=== PATIENT | female | born 2005 | race Caucasian/White ===

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

== ENCOUNTER 2023-02-26 17:34 | Emergency (ER) | payer BC, OTHER ==
[~2023-02-26] VITALS: Ht 170.2 cm; Wt 53.0 kg
--- OUTSIDE RECORDS SUMMARY | ~2023-02-26 | XMS | Continuity of Care Document ---
Demographics + + + | Address | [address] | | | [place] [address] | + + + | Preferred Language | Unknown | + + + | Marital Status | Never | + + + | Gnosticist Affiliation | Unknown | + + + | Race | White | + + + | Ethnic Group | Not or | + + + Author + + + | Author | [facility] | + + + | Organization | [facility] | + + + | Address | [address] | | | [place] [address] | + + + | Phone | | + + + Care Team Providers + + + + | Care [employer] [address] Forms Name | Role | Phone | + + + + Unavailable | Unavailable | + + + + Unavailable | Unavailable | + + + + Allergies No information. Encounters No information. Functional Status No information. Immunizations No information. Medications + + + + | date | description | facility | + + + + | 2022-02-16 00:00 | PSEUDOEPHEDRINE HCL | [facility] | + + + + | 2022-05-17 00:00 | PSEUDOEPHEDRINE HCL | [facility] | + + + + | 2022-05-22 00:00 | PSEUDOEPHEDRINE HCL | [facility] | + + + + | 2022-11-28 00:00 | PSEUDOEPHEDRINE HCL | [facility] | + + + + | 2022-11-28 00:00 | PHENAZOPYRIDINE HCL | [facility] | + + + + | 2022-11-28 00:00 | CEPHALEXIN | [facility] | + + + + | 2022-02-16 00:00 | PROMETHAZINE HCL | [facility] | + + + + | 2022-05-17 00:00 | PROMETHAZINE HCL | [facility] | + + + + | 2022-05-22 00:00 | PROMETHAZINE HCL | [facility] | + + + + | 2022-11-28 00:00 | PROMETHAZINE HCL | [facility] | + + + + | 2014-10-16 00:00 | ACETAMINOPHEN WITH CODEINE | [facility] | | | #3 | | + + + + Problems + + + + | date | description | facility | + + + + | 2014-06-10 00:00 | Upper respiratory | [facility] | | | infection | | + + + + | 2014-10-16 00:00 | Contusion of left middle | [facility] | | | finger | | + + + + | 2021-05-14 00:00 | Urinary tract infection | [facility] | + + + + | 2021-08-19 00:00 | Pain of right lower | [facility] | | | extremity | | + + + + | 2021-10-11 00:00 | Pain of left lower | [facility] | | | extremity | | + + + + | 2022-02-16 00:00 | Infection due to severe | [facility] | | | acute respiratory syndrome | | | | coronavirus 2 (SARS-CoV-2) | | + + + + | 2022-05-17 00:00 | Influenza due to influenza | [facility] | | | virus, type A, human | | + + + + | 2022-11-28 19:45 | URINARY TRACT INFECTION, | [facility] | | | SITE NOT SPECIFIED | | + + + + | 2022-11-28 19:45 | LEFT LOWER QUADRANT PAIN | [facility] | + + + + Procedures No information. Results/Labs +--------+--------+ +---------+--------+---------+ | test | date | facility | value | unit | notes | +--------+--------+ +---------+--------+---------+ + + | Result panel 1 | + + + + + + + + + | | 2022-02-16 | [facility] | POSITIVE | (missing) | (missing) | | (unavailable | 21:30 | [facility] | | | | + + + + + + + + + | Result panel 2 | + + + + + + + + + | | 2022-02-16 | [facility] | NEGATIVE | (missing) | (missing) | | (unavailable | 21:30 | [facility] | | | | + + + + + + + + + | Result panel 3 | + + + + + + + + + | | 2022-02-16 | [facility] | NEGATIVE | (missing) | (missing) | | (unavailable | 21:30 | [facility] | | | | + + + + + + + + + | Result panel 4 | + + + + + + + + + | | 2022-02-16 | [facility] | NEGATIVE | (missing) | (missing) | | (unavailable | 21:30 | [facility] | | | | + + + + + + + + + | Result panel 5 | + + + + + + + + + | | 2022-02-16 | [facility] | NEGATIVE | (missing) | (missing) | | (unavailable | 21:45 | [facility] | | | | + + + + + + + + + | Result panel 6 | + + + + + + + + + | | 2022-05-16 | [facility] | NEGATIVE | (missing) | (missing) | | (unavailable | 23:22 | [facility] | | | | + + + + + + + + + | Result panel 7 | + + + + + + + + + | | 2022-05-16 | [facility] | POSITIVE | (missing) | (missing) | | (unavailable | 23:22 | [facility] | | | | + + + + + + + + + | Result panel 8 | + + + + + + + + + | | 2022-05-16 | [facility] | NEGATIVE | (missing) | (missing) | | (unavailable | 23:22 | [facility] | | | | + + + + + + + + + | Result panel 9 | + + + + + + + + + | | 2022-05-16 | [facility] | NEGATIVE | (missing) | (missing) | | (unavailable | 23:22 | [facility] | | | | + + + + + + + + + | Result panel 10 | + + + + + + + + + | | 2022-05-16 | [facility] | NEGATIVE | (missing) | (missing) | | (unavailable | 23:22:08 | [facility] | | | | + + + + + + + + + | Result panel 11 | + + + + + + + + + | | 2022-05-16 | [facility] | POSITIVE | (missing) | (missing) | | (unavailable | 23:22:08 | [facility] | | | | + + + + + + + + + | Result panel 12 | + + + + + + + + + | | 2022-05-16 | [facility] | NEGATIVE | (missing) | (missing) | | (unavailable | 23:22:08 | [facility] | | | | + + + + + + + + + | Result panel 13 | + + + + + + + + + | | 2022-05-16 | [facility] | NEGATIVE | (missing) | (missing) | | (unavailable | 23:22:08 | [facility] | | | | + + + + + + + + + | Result panel 14 | + + + + + +-------+ + + | | 2022-05-18 | [facility] | 1.7 | (missing) | (missing) | | (unavailable | 17:50:08 | [facility] | | | | + + + +-------+ + + + + | Result panel 15 | + + + + + +--------+ + + | | 2022-05-19 | [facility] | 66.6 | (missing) | (missing) | | (unavailable | 05:15:08 | [facility] | | | | + + + +--------+ + + + + | Result panel 16 | + + + + + +--------+ + + | | 2022-05-19 | [facility] | 25.7 | (missing) | (missing) | | (unavailable | 05:15:08 | [facility] | | | | + + + +--------+ + + + + | Result panel 17 | + + + + + +-------+ + + | | 2022-05-19 | [facility] | 7.4 | (missing) | (missing) | | (unavailable | 05:15:08 | [facility] | | | | + + + +-------+ + + + + | Result panel 18 | + + + + + +-------+ + + | | 2022-05-19 | [facility] | 0.1 | (missing) | (missing) | | (unavailable | 05:15:08 | [facility] | | | | + + + +-------+ + + + + | Result panel 19 | + + + + + +-------+ + + | | 2022-05-19 | [facility] | 0.2 | (missing) | (missing) | | (unavailable | 05:15:08 | [facility] | | | | + + + +-------+ + + + + | Result panel 20 | + + + + + +-------+ + + | | 2022-05-19 | [facility] | 5.3 | (missing) | (missing) | | (unavailable | 05:15:08 | [facility] | | | | + + + +-------+ + + + + | Result panel 21 | + + + + + +-------+ + + | | 2022-05-19 | [facility] | 1.8 | (missing) | (missing) | | (unavailable | 05:15:08 | [facility] | | | | + + + +-------+ + + + + | Result panel 22 | + + + + + +-------+ + + | | 2022-05-19 | [facility] | 3.5 | (missing) | (missing) | | (unavailable | 05:15:08 | [facility] | | | | + + + +-------+ + + + + | Result panel 23 | + + + + + +--------+ + + | | 2022-05-19 | [facility] | 0.51 | (missing) | (missing) | | (unavailable | 05:15:08 | [facility] | | | | + + + +--------+ + + + + | Result panel 24 | + + + + + +-------+ + + | | 2022-05-19 | [facility] | 0.6 | (missing) | (missing) | | (unavailable | 05:15:08 | [facility] | | | | + + + +-------+ + + + + | Result panel 25 | + + + + + +------+ + + | | 2022-05-19 | [facility] | 12 | (missing) | (missing) | | (unavailable | 05:15:08 | [facility] | | | | + + + +------+ + + + + | Result panel 26 | + + + + + +------+ + + | | 2022-05-19 | [facility] | 10 | (missing) | (missing) | | (unavailable | 05:15:08 | [facility] | | | | + + + +------+ + + + + | Result panel 27 | + + + + + +-------+ + + | | 2022-05-19 | [facility] | 103 | (missing) | (missing) | | (unavailable | 05:15:08 | [facility] | | | | + + + +-------+ + + + + | Result panel 28 | + + + + + +-------+ + + | | 2022-05-19 | [facility] | 5.2 | (missing) | (missing) | | (unavailable | 05:15:08 | [facility] | | | | + + + +-------+ + + + + | Result panel 29 | + + + + + + + + + | | 2022-05-19 | [facility] | SEE SCANNED | (missing) | (missing) | | (unavailable | 05:15:08 | [facility] | [facility] | | | | + + + + + + + + + | Result panel 30 | + + + + + + + + + | | 2022-05-20 | [facility] | POSITIVE | (missing) | (missing) | | (unavailable | 04:15:08 | [facility] | | | | + + + + + + + + + | Result panel 31 | + + + + + + + + + | | 2022-05-20 | [facility] | NEGATIVE | (missing) | (missing) | | (unavailable | 04:15:08 | [facility] | | | | + + + + + + + + + | Result panel 32 | + + + + + + + + + | | 2022-05-20 | [facility] | NEGATIVE | (missing) | (missing) | | (unavailable | 04:15:08 | [facility] | | | | + + + + + + + + + | Result panel 33 | + + + + + + + + + | | 2022-05-20 | [facility] | NEGATIVE | (missing) | (missing) | | (unavailable | 04:15:08 | [facility] | | | | + + + + + + + + + | Result panel 34 | + + + + + + + + + | | 2022-05-20 | [facility] | NEGATIVE | (missing) | (missing) | | (unavailable | 04:15:08 | [facility] | | | | + + + + + + + + + | Result panel 35 | + + + + + + + + + | | 2022-05-20 | [facility] | NEGATIVE | (missing) | (missing) | | (unavailable | 04:15:08 | [facility] | | | | + + + + + + + + + | Result panel 36 | + + + + + + + + + | | 2022-05-20 | [facility] | NEGATIVE | (missing) | (missing) | | (unavailable | 04:15:08 | [facility] | | | | + + + + + + + + + | Result panel 37 | + + + + + + + + + | | 2022-05-20 | [facility] | NEGATIVE | (missing) | (missing) | | (unavailable | 04:15:08 | [facility] | | | | + + + + + + + + + | Result panel 38 | + + + + + + + + + | | 2022-05-20 | [facility] | NEGATIVE | (missing) | (missing) | | (unavailable | 04:15:08 | [facility] | | | | + + + + + + + + + | Result panel 39 | + + + + + + + + + | | 2022-05-20 | [facility] | NEGATIVE | (missing) | (missing) | | (unavailable | 04:15:08 | [facility] | | | | + + + + + + + + + | Result panel 40 | + + + + + + + + + | | 2022-05-20 | [facility] | NEGATIVE | (missing) | (missing) | | (unavailable | 04:15:08 | [facility] | | | | + + + + + + + + + | Result panel 41 | + + + + + + + + + | | 2022-05-20 | [facility] | NEGATIVE | (missing) | (missing) | | (unavailable | 04:15:08 | [facility] | | | | + + + + + + + + + | Result panel 42 | + + + + + + + + + | | 2022-05-20 | [facility] | NEGATIVE | (missing) | (missing) | | (unavailable | 04:15:08 | [facility] | | | | + + + + + + + + + | Result panel 43 | + + + + + + + + + | | 2022-05-20 | [facility] | BLOOD IN | (missing) | (missing) | | (unavailable | 04:30:08 | [facility] | | | | + + + + + + + + + | Result panel 44 | + + + + + +------+---------+ + | | 2022-05-20 | [facility] | 97 | mg/dL | (missing) | | (unavailable | 04:30:08 | [facility] | | | | + + + +------+---------+ + + + | Result panel 45 | + + + + + +-----+---------+ + | | 2022-05-20 | [facility] | 5 | mg/dL | (missing) | | (unavailable | 04:30:08 | [facility] | | | | + + + +-----+---------+ + + + | Result panel 46 | + + + + + +--------+---------+ + | | 2022-05-20 | [facility] | 0.64 | mg/dL | (missing) | | (unavailable | 04:30:08 | [facility] | | | | + + + +--------+---------+ + + + | Result panel 47 | + + + + + +-------+ + + | | 2022-05-20 | [facility] | 130 | (missing) | (missing) | | (unavailable | 04:30:08 | [facility] | | | | + + + +-------+ + + + + | Result panel 48 | + + + + + +--------+ + + | | 2022-05-20 | [facility] | 7.81 | (missing) | (missing) | | (unavailable | 04:30:08 | [facility] | | | | + + + +--------+ + + + + | Result panel 49 | + + + + + +-------+ + + | | 2022-05-20 | [facility] | 139 | (missing) | (missing) | | (unavailable | 04:30:08 | [facility] | | | | + + + +-------+ + + + + | Result panel 50 | + + + + + +-------+ + + | | 2022-05-20 | [facility] | 3.5 | (missing) | (missing) | | (unavailable | 04:30:08 | [facility] | | | | + + + +-------+ + + + + | Result panel 51 | + + + + + +-------+ + + | | 2022-05-20 | [facility] | 109 | (missing) | (missing) | | (unavailable | 04:30:08 | [facility] | | | | + + + +-------+ + + + + | Result panel 52 | + + + + + +------+ + + | | 2022-05-20 | [facility] | 24 | (missing) | (missing) | | (unavailable | 04:30:08 | [facility] | | | | + + + +------+ + + + + | Result panel 53 | + + + + + +-------+ + + | | 2022-05-20 | [facility] | 9.5 | (missing) | (missing) | | (unavailable | 04:30:08 | [facility] | | | | + + + +-------+ + + + + | Result panel 54 | + + + + + +-------+---------+ + | | 2022-05-20 | [facility] | 8.1 | mg/dL | (missing) | | (unavailable | 04:30:08 | [facility] | | | | + + + +-------+---------+ + + + | Result panel 55 | + + + + + +-------+---------+ + | | 2022-05-20 | [facility] | 2.0 | mg/dL | (missing) | | (unavailable | 04:30:08 | [facility] | | | | + + + +-------+---------+ + + + | Result panel 56 | + + + + + +-----+ + + | | 2022-05-20 | [facility] | O | (missing) | (missing) | | (unavailable | 04:30:08 | [facility] | | | | + + + +-----+ + + + + | Result panel 57 | + + + + + + + + + | | 2022-05-20 | [facility] | POSITIVE | (missing) | (missing) | | (unavailable | 04:30:08 | [facility] | | | | + + + + + + + + + | Result panel 58 | + + + + + + + + + | | 2022-05-20 | [facility] | NEGATIVE | (missing) | (missing) | | (unavailable | 04:30:08 | [facility] | | | | + + + + + + + + + | Result panel 59 | + + + + + +--------+ + + | | 2022-05-21 | [facility] | 13.7 | (missing) | (missing) | | (unavailable | 05:39:08 | [facility] | | | | + + + +--------+ + + + + | Result panel 60 | + + + + + +--------+ + + | | 2022-05-21 | [facility] | 2.97 | (missing) | (missing) | | (unavailable | 05:39:08 | [facility] | | | | + + + +--------+ + + + + | Result panel 61 | + + + + + +-------+ + + | | 2022-05-21 | [facility] | 9.3 | (missing) | (missing) | | (unavailable | 05:39:08 | [facility] | | | | + + + +-------+ + + + + | Result panel 62 | + + + + + +--------+ + + | | 2022-05-21 | [facility] | 27.4 | (missing) | (missing) | | (unavailable | 05:39:08 | [facility] | | | | + + + +--------+ + + + + | Result panel 63 | + + + + + +--------+ + + | | 2022-05-21 | [facility] | 92.2 | (missing) | (missing) | | (unavailable | 05:39:08 | [facility] | | | | + + + +--------+ + + + + | Result panel 64 | + + + + + +--------+ + + | | 2022-05-21 | [facility] | 31.4 | (missing) | (missing) | | (unavailable | 05:39:08 | [facility] | | | | + + + +--------+ + + + + | Result panel 65 | + + + + + +--------+ + + | | 2022-05-21 | [facility] | 34.0 | (missing) | (missing) | | (unavailable | 05:39:08 [facility] | | | | + + + +--------+ + + + + | Result panel 66 | + + + + + +--------+ + + | | 2022-05-21 | [facility] | 13.8 | (missing) | (missing) | | (unavailable | 05:39:08 | [facility] | | | | + + + +--------+ + + + + | Result panel 67 | + + + + + +-------+ + + | | 2022-05-21 | [facility] | 340 | (missing) | (missing) | | (unavailable | 05:39:08 | [facility] | | | | + + + +-------+ + + + + | Result panel 68 | + + + + + +-------+ + + | | 2022-11-28 | [facility] | 7.4 | (missing) | (missing) | | (unavailable | 19:50:07 | [facility] | | | | + + + +-------+ + + + + | Result panel 69 | + + + + + +--------+ + + | | 2022-11-28 | [facility] | 61.7 | (missing) | (missing) | | (unavailable | 19:50:07 | [facility] | | | | + + + +--------+ + + + + | Result panel 70 | + + + + + +--------+ + + | | 2022-11-28 | [facility] | 25.9 | (missing) | (missing) | | (unavailable | 19:50:07 | [facility] | | | | + + + +--------+ + + + + | Result panel 71 | + + + + + +-------+ + + | | 2022-11-28 | [facility] | 7.8 | (missing) | (missing) | | (unavailable | 19:50:07 [facility] | | | | + + + +-------+ + + + + | Result panel 72 | + + + + + +-------+ + + | | 2022-11-28 | [facility] | 3.7 | (missing) | (missing) | | (unavailable | 19:50:07 [facility] | | | | + + + +-------+ + + + + | Result panel 73 | + + + + + +-------+ + + | | 2022-11-28 | [facility] | 0.9 | (missing) | (missing) | | (unavailable | 19:50:07 [facility] | | | | + + + +-------+ + + + + | Result panel 74 | + + + + + +--------+ + + | | 2022-11-28 | [facility] | 4.08 | (missing) | (missing) | | (unavailable | 19:50:07 [facility] | | | | + + + +--------+ + + + + | Result panel 75 | + + + + + +--------+ + + | | 2022-11-28 | [facility] | 12.0 | (missing) | (missing) | | (unavailable | 19:50:07 [facility] | | | | + + + +--------+ + + + + | Result panel 76 | + + + + + +------+---------+ + | | 2022-11-28 | [facility] | 92 | mg/dL | (missing) | | (unavailable | 19:50:07 [facility] | | | | + + + +------+---------+ + + + | Result panel 77 | + + + + + +-----+---------+ + | | 2022-11-28 | [facility] | 7 | mg/dL | (missing) | | (unavailable | 19:50:07 [facility] | | | | + + + +-----+---------+ + + + | Result panel 78 | + + + + + +--------+---------+ + | | 2022-11-28 | [facility] | 0.88 | mg/dL | (missing) | | (unavailable | 19:50:07 [facility] | | | | + + + +--------+---------+ + + + | Result panel 79 | + + + + + +------+ + + | | 2022-11-28 | [facility] | 97 | (missing) | (missing) | | (unavailable | 19:50:07 [facility] | | | | + + + +------+ + + + + | Result panel 80 | + + + + + +--------+ + + | | 2022-11-28 | [facility] | 7.95 | (missing) | (missing) | | (unavailable | 19:50:07 [facility] | | | | + + + +--------+ + + + + | Result panel 81 | + + + + + +-------+ + + | | 2022-11-28 | [facility] | 140 | (missing) | (missing) | | (unavailable | 19:50:07 [facility] | | | | + + + +-------+ + + + + | Result panel 82 | + + + + + +-------+ + + | | 2022-11-28 | [facility] | 3.9 | (missing) | (missing) | | (unavailable | 19:50:07 [facility] | | | | + + + +-------+ + + + + | Result panel 83 | + + + + + +-------+ + + | | 2022-11-28 | [facility] | 105 | (missing) | (missing) | | (unavailable | 19:50:07 [facility] | | | | + + + +-------+ + + + + | Result panel 84 | + + + + + +------+ + + | | 2022-11-28 | [facility] | 24 | (missing) | (missing) | | (unavailable | 19:50:07 [facility] | | | | + + + +------+ + + + + | Result panel 85 | + + + + + +--------+ + + | | 2022-11-28 | [facility] | 36.8 | (missing) | (missing) | | (unavailable | 19:50:07 [facility] | | | | + + + +--------+ + + + + | Result panel 86 | + + + + + +--------+ + + | | 2022-11-28 | [facility] | 14.9 | (missing) | (missing) | | (unavailable | 19:50:07 [facility] | | | | + + + +--------+ + + + + | Result panel 87 | + + + + + +-------+---------+ + | | 2022-11-28 | [facility] | 8.4 | mg/dL | (missing) | | (unavailable | 19:50:07 [facility] | | | | + + + +-------+---------+ + + + | Result panel 88 | + + + + + +-------+---------+ + | | 2022-11-28 | [facility] | 1.9 | mg/dL | (missing) | | (unavailable | 19:50:07 [facility] | | | | + + + +-------+---------+ + + + | Result panel 89 | + + + + + +-------+ + + | | 2022-11-28 | [facility] | 6.9 | (missing) | (missing) | | (unavailable | 19:50:07 [facility] | | | | + + + +-------+ + + + + | Result panel 90 | + + + + + +-------+ + + | | 2022-11-28 | [facility] | 3.8 | (missing) | (missing) | | (unavailable | 19:50:07 [facility] | | | | + + + +-------+ + + + + | Result panel 91 | + + + + + +-------+ + + | | 2022-11-28 | [facility] | 3.1 | (missing) | (missing) | | (unavailable | 19:50:07 [facility] | | | | + + + +-------+ + + + + | Result panel 92 | + + + + + +--------+ + + | | 2022-11-28 | [facility] | 1.23 | (missing) | (missing) | | (unavailable | 19:50:07 [facility] | | | | + + + +--------+ + + + + | Result panel 93 | + + + + + +-------+ + + | | 2022-11-28 | [facility] | 0.4 | (missing) | (missing) | | (unavailable | 19:50:07 | [facility] | | | | + + + +-------+ + + + + | Result panel 94 | + + + + + +------+ + + | | 2022-11-28 | [facility] | 13 | (missing) | (missing) | | (unavailable | 19:50:07 | [facility] | | | | + + + +------+ + + + + | Result panel 95 | + + + + + +------+ + + | | 2022-11-28 | [facility] | 15 | (missing) | (missing) | | (unavailable | 19:50:07 | [facility] | | | | + + + +------+ + + + + | Result panel 96 | + + + + + +--------+ + + | | 2022-11-28 | [facility] | 90.2 | (missing) | (missing) | | (unavailable | 19:50:07 | [facility] | | | | + + + +--------+ + + + + | Result panel 97 | + + + + + +------+ + + | | 2022-11-28 | [facility] | 90 | (missing) | (missing) | | (unavailable | 19:50:07 | [facility] | | | | + + + +------+ + + + + | Result panel 98 | + + + + + + + + + | | 2022-11-28 | [facility] | NEGATIVE | (missing) | (missing) | | (unavailable | 19:50:07 | [facility] | | | | + + + + + + + + + | Result panel 99 | + + + + + +--------+ + + | | 2022-11-28 | [facility] | 29.4 | (missing) | (missing) | | (unavailable | 19:50:07 | [facility] | | | | + + + +--------+ + + + + | Result panel 100 | + + + + + +-----+ + + | | 2022-11-28 | [facility] | O | (missing) | (missing) | | (unavailable | 19:50:07 | [facility] | | | | + + + +-----+ + + + + | Result panel 101 | + + + + + + + + + | | 2022-11-28 | [facility] | POSITIVE | (missing) | (missing) | | (unavailable | 19:50:07 | [facility] | | | | + + + + + + + + + | Result panel 102 | + + + + + +--------+ + + | | 2022-11-28 | [facility] | 32.6 | (missing) | (missing) | | (unavailable | 19:50:07 | [facility] | | | | + + + +--------+ + + + + | Result panel 103 | + + + + + +--------+ + + | | 2022-11-28 | [facility] | 15.5 | (missing) | (missing) | | (unavailable | 19:50:07 | [facility] | | | | + + + +--------+ + + + + | Result panel 104 | + + + + + +-------+ + + | | 2022-11-28 | [facility] | 288 | (missing) | (missing) | | (unavailable | 19:50:07 | [facility] | | | | + + + +-------+ + + + + | Result panel 105 | + + + + + + + + + | | 2022-11-28 | [facility] | YELLOW | (missing) | (missing) | | (unavailable | 20:35:07 | [facility] | | | | + + + + + + + + + | Result panel 106 | + + + + + +---------+ + + | | 2022-11-28 | [facility] | CLEAR | (missing) | (missing) | | (unavailable | 20:35:07 | [facility] | | | | + + + +---------+ + + + + | Result panel 107 | + + + + + + + + + | | 2022-11-28 | [facility] | NEGATIVE | (missing) | (missing) | | (unavailable | 20:35:07 | [facility] | | | | + + + + + + + + + | Result panel 108 | + + + + + + + + + | | 2022-11-28 | [facility] | NEGATIVE | (missing) | (missing) | | (unavailable | 20:35:07 | [facility] | | | | + + + + + + + + + | Result panel 109 | + + + + + + + + + | | 2022-11-28 | [facility] | NEGATIVE | (missing) | (missing) | | (unavailable | 20:35:07 [facility] | | | | + + + + + + + + + | Result panel 110 | + + + + + +---------+ + + | | 2022-11-28 | [facility] | 1.015 | (missing) | (missing) | | (unavailable | 20:35:07 [facility] | | | | + + + +---------+ + + + + | Result panel 111 | + + + + + + + + + | | 2022-11-28 | [facility] | TRACE-I | (missing) | (missing) | | (unavailable | 20:35:07 [facility] | | | | + + + + + + + + + | Result panel 112 | + + + + + +-------+ + + | | 2022-11-28 | [facility] | 7.0 | (missing) | (missing) | | (unavailable | 20:35:07 [facility] | | | | + + + +-------+ + + + + | Result panel 113 | + + + + + + + + + | | 2022-11-28 | [facility] | NEGATIVE | (missing) | (missing) | | (unavailable | [facility]:07 [facility] | | | | + + + + + + + + + | Result panel 114 | + + + + + +-------+ + + | | 2022-11-28 | [facility] | 1.0 | (missing) | (missing) | | (unavailable | 20[facility]35:07 [facility] | | | | + + + +-------+ + + + + | Result panel 115 | + + + + + + + + + | | 2022-11-28 | [facility] | NEGATIVE | (missing) | (missing) | | (unavailable | [facility]35:07 [facility] | | | | + + + + + + + + + | Result panel 116 | + + + + + +---------+ + + | | 2022-11-28 | [facility] | SMALL | (missing) | (missing) | | (unavailable | 20:35:07 [facility] | | | | + + + +---------+ + + + + | Result panel 117 | + + + + + +-------+ + + | | 2022-11-28 | [facility] | 2-3 | (missing) | (missing) | | (unavailable | [facility]35:07 [facility] | | | | + + + +-------+ + + + + | Result panel 118 | + + + + + +-------+ + + | | 2022-11-28 | [facility] | 4-6 | (missing) | (missing) | | (unavailable | [facility]35:07 [facility] | | | | + + + +-------+ + + + + | Result panel 119 | + + + + + + + + + | | 2022-11-28 | [facility] | SQUAMOUS 2+ | (missing) | (missing) | | (unavailable | 20:35:07 [facility] | | | | + + + + + + + + + | Result panel 120 | + + + + + +------+ + + | | 2022-11-28 | [facility] | No | (missing) | (missing) | | (unavailable | 20[facility]35:07 [facility] | | | | + + + +------+ + + + + | Result panel 121 | + + + + + + + + + | | 2022-11-28 | [facility] | POSITIVE | (missing) | (missing) | | (unavailable | [facility]35:07 [facility] | | | | + + + + + + + + + | Result panel 122 | + + + + + + + + + | | 2022-11-28 | [facility] | NEGATIVE | (missing) | (missing) | | (unavailable | 20[facility]35:07 [facility] | | | | + + + + + + + + + | Result panel 123 | + + + + + + + + + | | 2022-11-28 | [facility] | NEGATIVE | (missing) | (missing) | | (unavailable | [facility]35:07 [facility] | | | | + + + + + + + + + | Result panel 124 | + + + + + + + + + | | 2022-11-28 | [facility] | NEGATIVE | (missing) | (missing) | | (unavailable | [facility]35:07 [facility] | | | | + + + + + + + + + | Result panel 125 | + + + + + + + + + | | 2022-11-28 | [facility] | NEGATIVE | (missing) | (missing) | | (unavailable | [facility]35:07 [facility] | | | | + + + + + + + + + | Result panel 126 | + + + + + + + + + | | 2022-11-28 | [facility] | NEGATIVE | (missing) | (missing) | | (unavailable | [facility]35:07 [facility] | | | | + + + + + + + + + | Result panel 127 | + + + + + + + + + | | 2022-11-28 | [facility] | NEGATIVE | (missing) | (missing) | | (unavailable | [facility]35:07 [facility] | | | | + + + + + + + + + | Result panel 128 | + + + + + + + + + | | 2022-11-28 | [facility] | POSITIVE | (missing) | (missing) | | (unavailable | [facility]35:07 [facility] | | | | + + + + + + + + + | Result panel 129 | + + + + + + + + + | | 2022-11-28 | [facility] | NEGATIVE | (missing) | (missing) | | (unavailable | 20[facility]35:07 [facility] | | | | + + + + + + + + + | Result panel 130 | + + + + + + + + + | | 2022-11-28 | [facility] | NEGATIVE | (missing) | (missing) | | (unavailable | 20[facility]35:07 [facility] | | | | + + + + + + + + + | Result panel 131 | + + + + + + + + + | | 2022-11-28 | [facility] | NEGATIVE | (missing) | (missing) | | (unavailable | [facility]35:07 [facility] | | | | + + + + + + + + + | Result panel 132 | + + + + + + + + + | | 2022-11-28 | [facility] | NEGATIVE | (missing) | (missing) | | (unavailable | [facility]35:07 [facility] | | | | + + + + + + + + + | Result panel 133 | + + + + + + + + + | | 2022-11-28 | [facility] | NEGATIVE | (missing) | (missing) | | (unavailable | 20[facility]35:07 [facility] | | | | + + + + + + + Social History No information. Vital Signs + + + +---------+ | date | measurement | value | units | + + + +---------+ | 2022-02-16 00:00 | BMI | 18.3 | kg/m2 | + + + +---------+ | 2022-02-16 00:00 | BP_diastolic | 62 | mmHg | + + + +---------+ | 2022-02-16 00:00 | BP_systolic | 106 | mmHg | + + + +---------+ | 2022-02-16 00:00 | heart_rate | 91 | /min | + + + +---------+ | 2022-02-16 00:00 | height_metric | 170.18 | cm | + + + +---------+ | 2022-02-16 00:00 | height_standard | 67 | in | + + + +---------+ | 2022-02-16 00:00 | o2_saturation | 100 | % | + + + +---------+ | 2022-02-16 00:00 | respiration_rate | 18 | /min | + + + +---------+ | 2022-02-16 00:00 | temperature_metric | 37.44 | C | | | | | | + + + +---------+ | 2022-02-16 00:00 | | 99.4 | F | | | temperature_standar | | | | | d | | | + + + +---------+ | 2022-02-16 00:00 | weight_metric | 53 | kg | + + + +---------+ | 2022-02-16 00:00 | weight_standard | 116.84 | lb | + + + +---------+ | 2022-05-17 00:00 | BMI | 18.3 | kg/m2 | + + + +---------+ | 2022-05-17 00:00 | BMI | 50 | % | + + + +---------+ | 2022-05-17 00:00 | BP_diastolic | 86 | mmHg | + + + +---------+ | 2022-05-17 00:00 | BP_systolic | 115 | mmHg | + + + +---------+ | 2022-05-17 00:00 | heart_rate | 89 | /min | + + + +---------+ | 2022-05-17 00:00 | height_metric | 170.18 | cm | + + + +---------+ | 2022-05-17 00:00 | height_standard | 67 | in | + + + +---------+ | 2022-05-17 00:00 | o2_saturation | 97 | % | + + + +---------+ | 2022-05-17 00:00 | respiration_rate | 20 | /min | + + + +---------+ | 2022-05-17 00:00 | temperature_metric | 36.83 | C | | | | | | + + + +---------+ | 2022-05-17 00:00 | | 98.3 | F | | | temperature_standar | | | | | d | | | + + + +---------+ | 2022-05-17 00:00 | weight_metric | 52.98 | kg | + + + +---------+ | 2022-05-17 00:00 | weight_metric | 52.99 | kg | + + + +---------+ | 2022-05-17 00:00 | weight_standard | 116.81 | lb | + + + +---------+ | 2022-05-17 00:00 | weight_standard | 116.82 | lb | + + + +---------+ | 2022-11-28 00:00 | BMI | 18.3 | kg/m2 | + + + +---------+ | 2022-11-28 00:00 | BMI | 50 | % | + + + +---------+ | 2022-11-28 00:00 | BP_diastolic | 71 | mmHg | + + + +---------+ | 2022-11-28 00:00 | BP_systolic | 121 | mmHg | + + + +---------+ | 2022-11-28 00:00 | heart_rate | 57 | /min | + + + +---------+ | 2022-11-28 00:00 | height_metric | 170.18 | cm | + + + +---------+ | 2022-11-28 00:00 | height_standard | 67 | in | + + + +---------+ | 2022-11-28 00:00 | o2_saturation | 100 | % | + + + +---------+ | 2022-11-28 00:00 | respiration_rate | 15 | /min | + + + +---------+ | 2022-11-28 00:00 | temperature_metric | 36.89 | C | | | | | | + + + +---------+ | 2022-11-28 00:00 | | 98.4 | F | | | temperature_standar | | | | | d | | | + + + +---------+ | 2022-11-28 00:00 | weight_metric | 52.98 | kg | + + + +---------+ | 2022-11-28 00:00 | weight_metric | 52.99 | kg | + + + +---------+ | 2022-11-28 00:00 | weight_standard | 116.81 | lb | + + + +---------+ | 2022-11-28 00:00 | weight_standard | 116.82 | lb | + + + +---------+"
--- OUTSIDE RECORDS SUMMARY | ~2023-02-26 | XMS | Continuity of Care Document ---
Demographics + + + | Address | [address] | | | [place] [address] | + + + | Preferred Language | Unknown | + + + | Marital Status | Never | + + + | Methodist Affiliation | Unknown | + + + | Race | White | + + + | Ethnic Group | Not or | + + + Author + + + | Author | [facility] | + + + | Organization | [facility] | + + + | Address | [address] | | | [place] [address] | + + + | Phone | | + + + Care Team Providers + + + + | Care Forensic Computer Examiner Name | Role | Phone | + + + + Unavailable | Unavailable | + + + + Unavailable | Unavailable | + + + + Allergies No information. Encounters No information. Functional Status No information. Immunizations No information. Medications + + + + | date | description | facility | + + + + | 2022-02-16 00:00 | PSEUDOEPHEDRINE HCL | [facility] | + + + + | 2022-05-17 00:00 | PSEUDOEPHEDRINE HCL | [facility] | + + + + | 2022-05-22 00:00 | PSEUDOEPHEDRINE HCL | [facility] | + + + + | 2022-11-28 00:00 | PSEUDOEPHEDRINE HCL | [facility] | + + + + | 2022-11-28 00:00 | PHENAZOPYRIDINE HCL | [facility] | + + + + | 2022-11-28 00:00 | CEPHALEXIN | [facility] | + + + + | 2022-02-16 00:00 | PROMETHAZINE HCL | [facility] | + + + + | 2022-05-17 00:00 | PROMETHAZINE HCL | [facility] | + + + + | 2022-05-22 00:00 | PROMETHAZINE HCL | [facility] | + + + + | 2022-11-28 00:00 | PROMETHAZINE HCL | [facility] | + + + + | 2014-10-16 00:00 | ACETAMINOPHEN WITH CODEINE | [facility] | | | #3 | | + + + + Problems + + + + | date | description | facility | + + + + | 2014-06-10 00:00 | Upper respiratory | [facility] | | | infection | | + + + + | 2014-10-16 00:00 | Contusion of left middle | [facility] | | | finger | | + + + + | 2021-05-14 00:00 | Urinary tract infection | [facility] | + + + + | 2021-08-19 00:00 | Pain of right lower | [facility] | | | extremity | | + + + + | 2021-10-11 00:00 | Pain of left lower | [facility] | | | extremity | | + + + + | 2022-02-16 00:00 | Infection due to severe | [facility] | | | acute respiratory syndrome | | | | coronavirus 2 (SARS-CoV-2) | | + + + + | 2022-05-17 00:00 | Influenza due to influenza | [facility] | | | virus, type A, human [...]
[~2023-02-26 17:34] MED LIST changes: +PYRIDIUM100 MG PO
[2023-02-26 19:09] VITALS: BP 104/72
== END 2023-02-26 19:04 | disposition home or self-care (01) ==
LOC: ED 17:34
DX: S50.11XA Contusion of right forearm, initial encounter (principal); Y04.2XXA Assault by strike against or bumped into by another person, initial encounter
CPT/HCPCS: 73090; 99283-25

== ENCOUNTER 2023-04-24 19:06 | Emergency (ER) | payer BC, OTHER ==
[~2023-04-24] VITALS: Ht 167.6 cm; Wt 47.0 kg
[2023-04-24] MEDS ORDERED: ESCITALOPRAM OXA5 MG PO (19:21)
[2023-04-24 19:31] VITALS: BP 118/78
== END 2023-04-24 19:31 | disposition home or self-care (01) ==
LOC: ED 19:06
DX: M67.442 Ganglion, left hand (principal); Z79.899 Other long term (current) drug therapy
CPT/HCPCS: 99282

== ENCOUNTER 2024-02-06 13:29 | Inpatient (IN) | payer BC, OTHER ==
[~2024-02-06] VITALS: Ht 167.6 cm; Wt 59.0 kg
[~2024-02-06 13:29] MED LIST changes: +ESCITALOPRAM OXA5 MG PO
[2024-02-06] MEDS ORDERED: MAGNESIUM HYDROXIDE/AL HYDROX 30 ML CUP PO PRN (14:00)
[2024-02-06] MEDS ORDERED: LACTATED RINGER'S 1,000 ML IV SCH (14:00)
[2024-02-06] MEDS ORDERED: OXYTOCIN/DEXTROSE 5% 20 UNITS/100 ML BAG IV SCH (14:00)
[2024-02-06] MEDS ORDERED: CALCIUM CARBONATE 500 MG CHEW PO PRN (14:00)
[2024-02-06] MEDS ORDERED: LACTATED RINGER'S 1,000 ML IV PRN (14:00)
[2024-02-06 14:11] LABS: HEMATOCRIT 35.8 % (35.0-50.0); HEMOGLOBIN 12.3 g/dL (12.0-18.0); MCH 31.6 (27-36); MCHC 34.5 g/dl (30-36); MCV 91.8 fl (81-99); RBC 3.9 M/ul (4.3-5.7); RDW 13.2 (10.5-15.0)
[2024-02-06 14:48] VITALS: BP 121/83
[2024-02-06] MEDS ORDERED: dexmedeTOMIDine HCl 200 MCG/2 ML VIAL ONE (14:51)
[2024-02-06] MEDS ORDERED: LIDOCAINE HCL 2% 5 ML SDV ONE (14:51)
[2024-02-06] MEDS ORDERED: ROPIVACAINE 0.2% 200 ML BAG ONE (14:51)
[2024-02-06] MEDS ORDERED: BUPIVACAINE HCL 0.25% 10 ML SDV INJ ONE (14:51)
[2024-02-06 14:58] LABS: AMPHETAMINES, URINE NEGATIVE (NEGATIVE); BARBITURATES, URINE NEGATIVE (NEGATIVE); BENZODIAZEPINE, URINE NEGATIVE (NEGATIVE); BUPRENORPHINE, URINE NEGATIVE (NEGATIVE); CANNABINOID, URINE POSITIVE (NEGATIVE); COCAINE, URINE NEGATIVE (NEGATIVE); ECSTASY, URINE NEGATIVE (NEGATIVE); FENTANYL, URINE NEGATIVE (NEGATIVE); METHADONE, URINE NEGATIVE (NEGATIVE); OPIATES, URINE NEGATIVE (NEGATIVE); OXYCODONE, URINE NEGATIVE (NEGATIVE); PHENCYCLIDINE, URINE NEGATIVE (NEGATIVE)
[2024-02-06 14:59] LABS: ABO O; RH POSITIVE
[2024-02-06 15:00] LABS: ANTIBODY SCREEN NEGATIVE
[2024-02-06] MEDS ORDERED: LACTATED RINGER'S 2,000 ML IV ONE (15:45)
[2024-02-06] MEDS ORDERED: ROPIVACAINE 0.2% 200 ML BAG EPIDURAL SCH ×2 (15:45)
[2024-02-06] MEDS ORDERED: ePHEDrine sulfate 5 MG/ML SYRINGE IV PRN (15:45)
[2024-02-06] MEDS ORDERED: LACTATED RINGER'S 500 ML IV PRN (15:45)
[2024-02-06 17:25] LABS: N. GONORRRHOEAE BY PCR NOT DETECTED (NOT DETECT)
[2024-02-06] MEDS ORDERED: OXYTOCIN/0.9 % SODIUM CHLORIDE 500 ML IV SCH (18:00)
[2024-02-06] MEDS ORDERED: BENZOCAINE 60 ML AEROSOL TOP PRN (18:45)
[2024-02-06] MEDS ORDERED: MAGNESIUM HYDROXIDE 30 ML UDC PO PRN (18:45)
[2024-02-06] MEDS ORDERED: ACETAMINOPHEN 325 MG TAB PO PRN (18:45)
[2024-02-06] MEDS ORDERED: IBUPROFEN 600 MG TAB PO PRN (18:45)
[2024-02-06] MEDS ORDERED: WITCH HAZEL/GLYCERIN 1 EA PAD TOP PRN (18:45)
[2024-02-06] MEDS ORDERED: LIDOCAINE 2% VISCOUS 6 ML SYR TOP ONE (18:45)
[2024-02-06] MEDS ORDERED: HYDROCORTISONE ACETATE 25 MG SUPP PR PRN (18:45)
[2024-02-06] MEDS ORDERED: SENNOSIDES/DOCUSATE 1 EA TAB PO SCH (21:00)
[2024-02-07 05:58] LABS: HEMATOCRIT 30.1 % (35.0-50.0); HEMOGLOBIN 10.1 g/dL (12.0-18.0); MCH 31.1 (27-36); MCHC 33.6 g/dl (30-36); MCV 92.7 fl (81-99); RBC 3.25 M/ul (4.3-5.7); RDW 12.6 (10.5-15.0)
[2024-02-07] MEDS ORDERED: droPERidol 5 MG/2 ML VIAL IV PRN (08:15)
[2024-02-07] MEDS ORDERED: KETOROLAC TROMETHAMINE 30 MG/ML VIAL IV PRN (08:15)
[2024-02-07] MEDS ORDERED: ondansetron HCL 4 MG/2 ML VIAL IV PRN ×2 (08:15)
[2024-02-07] MEDS ORDERED: PROCHLORPERAZINE EDISYLATE 10 MG/2 ML VIAL IV PRN ×2 (08:15)
[2024-02-07] MEDS ORDERED: NALOXONE HCL 0.4 MG SYR IV PRN ×2 (08:15)
[2024-02-07] MEDS ORDERED: METOCLOPRAMIDE HCL 10 MG/2 ML SDV IV PRN ×2 (08:15)
[2024-02-07] MEDS ORDERED: diphenhydrAMINE HCL 25 MG CAP PO PRN (08:15)
[2024-02-07] MEDS ORDERED: MORPHINE SULFATE 10 MG/ML VIAL IV PRN (08:15)
[2024-02-07] MEDS ORDERED: IBLOOD GLUCOSE TEST STRIP 1 EA TEST VI PRN (08:15)
[2024-02-07] MEDS ORDERED: MORPHINE SULFATE 4 MG/ML VIAL IV PRN (08:15)
[2024-02-07] MEDS ORDERED: diphenhydrAMINE HCL 50 MG/ML VIAL IV PRN (08:15)
[2024-02-07] MEDS ORDERED: fentaNYL citrate 50 MCG/ML SDV IV PRN (08:15)
[2024-02-08] MEDS ORDERED: MEASLES,MUMPS&RUBELLA VACCINE 1 VIAL VIAL SUB-Q SCH (09:00)
== END 2024-02-08 11:32 | disposition home or self-care (01) | DRG 806 ==
LOC: FBCO 13:29 → FBC 13:35
PROVIDERS: ADMIT Obstetrics & Gynecology; ATTEND Obstetrics & Gynecology
PROC: 10E0XZZ Delivery of Products of Conception, External Approach (ICD-10-PCS; principal; 2024-02-06)
PROC: 3E0R3BZ Introduction of Anesthetic Agent into Spinal Canal, Percutaneous Approach (ICD-10-PCS; 2024-02-06)
PROC: 00HU33Z Insertion of Infusion Device into Spinal Canal, Percutaneous Approach (ICD-10-PCS; 2024-02-06)
PROC: 10907ZC Drainage of Amniotic Fluid, Therapeutic from Products of Conception, Via Natural or Artificial Opening (ICD-10-PCS; 2024-02-06)
DX: O98.82 Other maternal infectious and parasitic diseases complicating childbirth (principal); O99.324 Drug use complicating childbirth; Z37.0 Single live birth; O99.334 Smoking (tobacco) complicating childbirth; Z3A.37 37 weeks gestation of pregnancy; F17.210 Nicotine dependence, cigarettes, uncomplicated; F12.90 Cannabis use, unspecified, uncomplicated
CPT/HCPCS: 36415; 80307; 85027; 86850; 86900; 86901; 87491; 90707; A9270; J2001; J2795; J7121